=== PATIENT | male | born 2000 | race Caucasian/White ===

== ENCOUNTER 2022-02-23 01:04 | Emergency (ER) | payer SELFPAY ==
[~2022-02-23] VITALS: Ht 165.1 cm; Wt 55.0 kg
[2022-02-23 01:13] VITALS: BP 133/72
[2022-02-23] MEDS ORDERED: BACITRACIN 0.9 GM PACKET OINTMENT TP ONE (01:45)
[2022-02-23] MEDS ORDERED: HYDROGEN PEROXIDE 118 ML SOLUTION TP ONE (01:45)
== END 2022-02-23 01:50 | disposition home or self-care (01) ==
LOC: EMS 01:11
DX: S61.051A Open bite of right thumb without damage to nail, initial encounter (principal); W54.0XXA Bitten by dog, initial encounter; Y93.89 Activity, other specified; Y92.89 Other specified places as the place of occurrence of the external cause; Y99.8 Other external cause status
CPT/HCPCS: 99283